=== PATIENT | female | born 1985 | race Caucasian/White ===

== ENCOUNTER 2024-03-06 14:42 | Emergency (ER) | payer BC, SELFPAY ==
[2024-03-06 14:50] VITALS: BP 112/82; BMI 23.3
[2024-03-06 15:39] LABS: % Basophils 0.4 % (0-2); % Eosinophils 3.2 % (0-6); % Immature Granulocytes 0.4 % (0-0.5); % Lymphocytes 17.9 % (20.5-51.1); % Monocytes 6.3 % (1.7-9.3); % Neutrophils 71.8 % (42.2-75.2); Absolute Eosinophils 0.3 10^3/uL (0-0.7); Absolute Lymphocytes 1.9 10^3/uL (1.2-3.4); Absolute Monocytes 0.7 10^3/uL (0.1-0.6); Absolute Neutrophils 7.5 10^3/uL (1.4-6.5); Hematocrit 40.6 % (37.0-47.0); Hemoglobin 13.8 g/dL (12.0-16.0); Mean Corpuscular Hgb 29.1 pg (27.0-31.0); Mean Corpuscular Volume 85.7 fL (81.0-99.0); Mean Platelet Volume 9.1 fL (7.4-10.4); Nucleated Red Blood Cells % 0 %; Platelet Count 266 10^3/uL (130-400); Red Blood Cell Count 4.74 10^6/uL (4.20-5.40); Red Cell Dist. Width 12.7 % (11.5-14.5); White Blood Cell Count 10.5 10^3/uL (4.8-10.8)
--- NOTE | 2024-03-06 15:41 | ED.GENMED ---
History of Present Illness
General
Chief Complaint: Abdominal Pain
Source: patient
Exam Limitations: none
Time Seen by Provider: 03/06/24 15:07
Nursing documentation reviewed up to this point in time: agreed with
Travel History
Have you had any contact with someone who has COVID-19?: No
Do you have any symptoms of coronavirus? Fever > 100 degrees, chills, cough, shortness of breath, sore throat, loss of taste or smell, muscle aches, or headache?: No
History of Present Illness
History of Present Illness:
Patient to eD with complaint of upper abdominal pain. Pain started a few days ago. radiates arouond to both sides of back. Denies fever but feels chilles. +nausea. no vomiting or diarrhea. Brought to ED by family for eval.
Past History
Past History
ED Past Medical History: Other (migraines, Guilliame Bare )
ED Past Surgical History: Appendectomy and Other (Sinus surgery)
Social History
Tobacco: Non-smoker
Alcohol: None
Drug: None
Review of Systems
Review of Systems
Allergies reviewed?: Yes
All Other Systems: ROS reviewed and negative except as documented in HPI and ROS
Constitutional: Reports chills
EENT: Reports no symptoms
Respiratory: Reports no symptoms
Cardiac: Reports no symptoms
ABD/GI: Reports abdominal pain (Upper abdomen radiating around to both sides of back.)
: Reports no symptoms
Musculoskeletal: Reports no symptoms
Skin: Reports no symptoms
Neurological: Reports no symptoms
Psychiatric: Reports no symptoms
Phy Exam
General Physical Exam
General Presentation: well appearing and no apparent distress
General age: appears stated age
General Skin: warm and dry
General Habitus: normal
Cardiovascular Exam
Cardiovascular Exam: regular rate/rhythm
Gastrointestinal Exam
Gastrointestinal Exam: normal bowel sounds, soft, no organomegaly, no pulsatile mass, non distended and no cva tenderness
Palpation: left upper quadrant: Moderate tenderness, left lower quadrant: No tenderness, right upper quadrant: Moderate tenderness and right lower quadrant: No tenderness
Musculoskeletal Exam
Musculoskeletal Exam: full ROM and neuro vasc intact
Skin Exam
Skin Exam: normal color, warm/dry, no rash and no petechia
Psychiatric Exam
Psychiatric Exam: normal mood/affect
Course
Orders/Labs/Results
Orders:
Orders
03/06/24 15:15
US Abdomen Complete/Upper Urgent
Comment:
Reason For Exam: pain
03/06/24 15:16
0.9% Sodium Chloride 1000 ml [Nss] 1,000 ml IV BOLUS
HYDROmorphone [Dilaudid] 0.5 mg IV NOW STA
Ondansetron Injectable [Zofran] 4 mg IV NOW STA
Test Result ONCE
03/06/24 15:34
Complete Blood Count/With Diff Urgent
Comprehensive Metabolic Panel Urgent
HCG, Serum Qualitative Screen Urgent
Lipase Urgent
03/06/24 15:37
Urinalysis Reflex To Culture Urgent
Date Specimen was Collected: 03/06/24
Time Specimen was Collected: 15:35
Abnormal Lab Results
03/06/24
15:34
Absolute Neuts (auto) 7.5 H 10^3/uL
(1.4-6.5)
Absolute Monos (auto) 0.7 H 10^3/uL
(0.1-0.6)
Lymphocytes % 17.9 L %
(20.5-51.1)
Sodium 134 L mmol/L
(135-145)
03/06/24 15:34
03/06/24 15:34
Vital Signs
Initial and Last Documented VS:
Initial Vital Signs
Temp Pulse Resp BP Pulse Ox
97 F 97 16 112/82 99
03/06/24 14:50 03/06/24 14:50 03/06/24 14:50 03/06/24 14:50 03/06/24 14:50
Last Documented Vital Signs
Temp Pulse Resp BP Pulse Ox
97 F 97 16 112/82 99
03/06/24 14:50 03/06/24 14:50 03/06/24 14:50 03/06/24 14:50 03/06/24 14:50
*Critical Care Note
Total Time (30-74mins, 75-104mins- exclusive of procedures): Not Applicable
Update Note
Update Note:
Labs, US reviewed with patient. No findings to explain her symptoms. Comfortable after IVF, meds. Will hold off on CT for now. SHe will be discharged home and will follow up closely with PCP after disharge. Given instructions on s/s to return
to ED and she is agreeable to plan.
ED Attending Note
-
Portions of this chart may have been created with voice recognition software.� Occasional wrong word or��sound alike� substitutions may have occurred due to the inherent limitations of voice recognition software.
Discharge Plan
Departure
Patient Disposition: Home (Routine Discharge)
Date of Disposition: 03/06/24
Time of Disposition: 16:25
Patient with high blood pressure during this ER visit?: No
Condition: Good
Covid-19: Not Applicable
Discharge Problem:
Abdominal pain
Instructions: Clear Liquid Diet, Abdominal Pain
Referrals:
Tevin Lozano MD [Family Provider] - Tomorrow
Activity Restrictions/Additional Instructions:
Return to the emergency department immediately for any changes in/wosening of your symptosm
Interventions
Interventions:
*Risk Screen - Suicide Last Done: 03/06/24 14:50
*General Assessment Last Done: 03/06/24 15:16
*Neglect/Abuse Screening Last Done: 03/06/24 14:50
ED- Fall Risk Assessment Last Done: 03/06/24 15:19
*ED COVID-19 Vaccine History Last Done: 03/06/24 14:50
XN-Dcwlzb-Yctkitkwcj Assessment Last Done: 03/06/24 15:19
Discharge Date and Time
Print Language: QATARI
[2024-03-06 15:44] LABS: Urine Albumin Negative (Neg - Trace); Urine Bilirubin Negative (Negative); Urine Character Clear (Clear); Urine Color Yellow; Urine Glucose Negative (Negative); Urine Ketone Negative (Negative); Urine Leukocyte Negative (Negative); Urine Nitrite Negative (Negative); Urine Occult Blood Negative (Negative); Urine Urobilinogen Negative (Neg - 1+)
[2024-03-06 15:59] LABS: HCG, Serum Qualitative Screen Negative
[2024-03-06 16:01] LABS: ALT (SGPT) 12 U/L (0-35); AST (SGOT) 21 U/L (14-36); Albumin 4.6 g/dl (3.5-5.0); Alkaline Phosphatase 69 U/L (38-126); Blood Urea Nitrogen 10 mg/dl (7-17); Calcium 9.9 mg/dl (8.4-10.2); Carbon Dioxide 30 mmol/L (22-30); Chloride 102 mmol/L (98-107); Estimated Creatinine Clearance 112 ml/min; Glucose 99 mg/dl (70-99); Lipase 111 U/L (23-300); Potassium 3.8 mmol/L (3.5-5.1); Sodium 134 mmol/L (135-145); Total Bilirubin 0.4 mg/dl (0.2-1.3); Total Protein 7.4 g/dl (6.3-8.2); eGFR > 60.00
[2024-03-06 16:55] VITALS: BP 110/78
== END 2024-03-06 17:01 | disposition home or self-care (01) ==
LOC: EMR 14:42
PROVIDERS: Nurse Practitioner; EMERGENCY PHYSICIAN Emergency Medicine; FAMILY PHYSICIAN Internal Medicine
DX: R10.10 Upper abdominal pain, unspecified (principal); R68.83 Chills (without fever); R11.0 Nausea
CPT/HCPCS: 99284; 76700; 80053; 81003; 83690; 84703; 85025

== ENCOUNTER 2025-01-15 11:15 | Emergency (ER) | payer BC, SELFPAY ==
[2025-01-15] VITALS (12 sets, daily range): BP systolic 99–136; BP diastolic 69–106; PULSE 98–103; BMI 23.3
[2025-01-15 12:05] LABS: % Basophils 0.4 % (0-2); % Eosinophils 3.4 % (0-6); % Immature Granulocytes 0.3 % (0-0.5); % Lymphocytes 27.2 % (20.5-51.1); % Monocytes 9.6 % (1.7-9.3); % Neutrophils 59.1 % (42.2-75.2); Absolute Eosinophils 0.2 10^3/uL (0-0.7); Absolute Lymphocytes 1.9 10^3/uL (1.2-3.4); Absolute Monocytes 0.7 10^3/uL (0.1-0.6); Hematocrit 31.9 % (37.0-47.0); Hemoglobin 10.1 g/dL (12.0-16.0); Mean Corp Hgb Conc. 31.7 g/dL (33.0-37.0); Mean Corpuscular Hgb 24.6 pg (27.0-31.0); Mean Corpuscular Volume 77.8 fL (81.0-99.0); Mean Platelet Volume 8.6 fL (7.4-10.4); Nucleated Red Blood Cells % 0 %; Platelet Count 334 10^3/uL (130-400); Red Cell Dist. Width 14.5 % (11.5-14.5); White Blood Cell Count 6.8 10^3/uL (4.8-10.8)
[2025-01-15 12:20] LABS: ALT (SGPT) 12 U/L (0-35); AST (SGOT) 18 U/L (14-36); Albumin 4.4 g/dl (3.5-5.0); Alkaline Phosphatase 72 U/L (38-126); Blood Urea Nitrogen 11 mg/dl (7-17); Calcium 9.7 mg/dl (8.4-10.2); Carbon Dioxide 28 mmol/L (22-30); Chloride 102 mmol/L (98-107); Glucose 97 mg/dl (70-99); Potassium 4.1 mmol/L (3.5-5.1); Sodium 138 mmol/L (135-145); Total Bilirubin 0.4 mg/dl (0.2-1.3); Total Protein 7.3 g/dl (6.3-8.2); eGFR > 60.00
[2025-01-15 12:29] LABS: Troponin I < 0.012 ng/ml
[2025-01-15 12:38] LABS: Urine Albumin Negative (Neg - Trace); Urine Bilirubin Negative (Negative); Urine Character Slightly Cloudy (Clear); Urine Color Yellow; Urine Glucose Negative (Negative); Urine Ketone Negative (Negative); Urine Leukocyte 2+ (Negative); Urine Nitrite Negative (Negative); Urine Occult Blood Negative (Negative); Urine Urobilinogen Negative (Neg - 1+)
[2025-01-15] MEDS: TORADOL 15 MG IV (12:46)
[2025-01-15] MEDS: VALIUM INJECTION 2 MG IV ×2 (12:46→14:00)
[2025-01-15] MEDS: REGLAN 10 MG IV (12:47)
[2025-01-15 13:21] LABS: Urine Squamous Cell >30 /LPF (Few)
[2025-01-15 13:23] LABS: Urine Amorphous Seen
[2025-01-15 13:24] LABS: Urine Red Blood Cell 0-2 /HPF (0-2)
--- NOTE | 2025-01-15 13:52 | ED.GENMED ---
History of Present Illness
General
Chief Complaint: Heart Rate Problem
Time Seen by Provider: 01/15/25 12:22
History of Present Illness
History of Present Illness:
39-year-old female with history of Guillain-Elkins� and hemiplegic migraines presents to the emergency department for evaluation of postural dizziness and tachycardia that is been ongoing for the past 3 to 4 days. She reports that while using a home
pulse oximeter she has noted her heart rate increases in the 1 20-1 30 range when upright. She has not been able to stand up without feeling dizzy. She does note that she had 'the flu' approximately 3 to 4 weeks ago. She also reports a persistent
migraine for the past month that is consistent with her past history of migraines. Denies any vision changes. When upright she describes a sensation as 'feeling drunk'.
Past History
Past History
ED Past Medical History: Other (migraines, Guilliame Bare )
ED Past Surgical History: Appendectomy and Other (Sinus surgery)
Social History
Tobacco: Non-smoker
Alcohol: None
Drug: None
Review of Systems
Review of Systems
Allergies reviewed?: Yes
All Other Systems: ROS reviewed and negative except as documented in HPI and ROS
Phy Exam
Physical Exam
Physical Exam:
GEN: Well appearing, NAD, WDWN
HEENT: Oral mucosa moist, no scleral icterus, no nasal congestion
Cardiac: Mildly tachycardic, regular
Lung: No respiratory distress, no tachypnea
MSK: No gross deformity or injuries
Skin: Good color, no pallor or jaundice, no rashes
Neuro: AO x3; CN II-XII grossly intact. BUE strength 5/5 in all li, sensation intact and symmetric. BLE strength 5/5 in all li, sensation intact and symmetric. Horizontal nystagmus noted when patient is upright
Psych: Calm, cooperative
Course
Orders/Labs/Results
Orders:
Orders
01/15/25 11:16
ECG [Electrocardiogram (*1)] Urgent
Reason for Study: Tachycardia
EKG- Treatment ONCE
01/15/25 11:51
Complete Blood Count/With Diff Urgent
Comprehensive Metabolic Panel Urgent
Troponin I Urgent
01/15/25 12:27
HCG, Urine Qualitative Screen Urgent
Date Specimen was Collected: 01/15/25
Time Specimen was Collected: 12:24
Comment: ADD ON
Urinalysis Reflex To Culture Urgent
Date Specimen was Collected: 01/15/25
Time Specimen was Collected: 12:24
Urine Microscopic Reflex Cult Urgent
Urine Culture Urgent
[place] Source: U
Specimen Description:
Date Specimen was Collected: 01/15/25
Time Specimen was Collected: 12:24
01/15/25 12:40
Ketorolac [Toradol] 15 mg IV NOW STA
Metoclopramide [Reglan] 10 mg IV NOW STA
diazePAM [Valium Injection] 2 mg IV NOW STA
01/15/25 13:48
CT Head W/o Iv Contrast Urgent
Comment:
Reason For Exam: intractable vertigo
Dexamethasone Sod Phosphate [Decadron] 10 mg IV NOW STA
diazePAM [Valium Injection] 2 mg IV NOW STA
01/15/25 13:56
Add On- LAB Stat
Comments:: HCG urine
Tests Added?: Urine HCG
01/15/25 14:13
Add On- LAB Urgent
Tests Added?: HCG qualitative
Abnormal Lab Results
01/15/25 01/15/25
11:51 12:27
RBC 4.10 L 10^6/uL
(4.20-5.40)
Hgb 10.1 L g/dL
(12.0-16.0)
Hct 31.9 L %
(37.0-47.0)
MCV 77.8 L fL
(81.0-99.0)
MCH 24.6 L pg
(27.0-31.0)
MCHC 31.7 L g/dL
(33.0-37.0)
Absolute Monos (auto) 0.7 H 10^3/uL
(0.1-0.6)
Monocytes % 9.6 H %
(1.7-9.3)
Leukocyte Esterase Rfl 2+ A
(Negative)
01/15/25 11:51
01/15/25 11:51
Vital Signs
Initial and Last Documented VS:
Initial Vital Signs
Temp Pulse Resp BP Pulse Ox
98.7 F 109 20 125/81 100
01/15/25 11:21 01/15/25 11:21 01/15/25 11:21 01/15/25 11:21 01/15/25 11:21
Last Documented Vital Signs
Temp Pulse Resp BP Pulse Ox
98.7 F 86 20 99/79 94
01/15/25 11:21 01/15/25 15:45 01/15/25 15:45 01/15/25 15:30 01/15/25 15:45
MDM/Problems Addressed
MDM/Problems Addressed:
Ultimately I suspect patient's vertigo symptoms are due to peripheral vertigo such as vestibular neuritis in the setting of recent flulike illness. She does not become orthostatic when upright, she does have mild tachycardia but no hypotension and
given her description as 'feeling drunk' I suspect this is a peripheral vertigo process. After initial dose of treatments did not provide significant improvement CT of the head was obtained. Patient will be observed in the ED as she metabolizes
benzodiazepines, clearly she does not tolerate these well and this would not be recommended at discharge. Will trial course of steroids, anticipate the patient can be discharged home however can be offered admission if she remains profoundly
vertiginous
*Critical Care Note
Total Time (30-74mins, 75-104mins- exclusive of procedures): Not Applicable
ED Attending Note
-
Portions of this chart may have been created with voice recognition software.� Occasional wrong word or��sound alike� substitutions may have occurred due to the inherent limitations of voice recognition software.
Discharge Plan
Departure
Patient Disposition: Home (Routine Discharge)
Patient with high blood pressure during this ER visit?: No
Discharge Problem:
Vertigo
Instructions: Vertigo ED
Prescriptions:
New
methylprednisolone [Medrol ([place])] 4 mg tablets,dose pack
See Rx Instructions .ROUTE .COMPLEX Qty: 21 0RF
Rx Instructions:
orally per package directions
Referrals:
Tevin Lozano MD [Family Provider] -
Interventions
Interventions:
*Risk Screen - Suicide Last Done: 01/15/25 11:21
*General Assessment Last Done: 01/15/25 11:21
*Neglect/Abuse Screening Last Done: 01/15/25 11:21
*ED- Fall Risk Assessment Last Done: 01/15/25 11:41
*Nursing Disposition Last Done: 01/15/25 15:45
ED- Cardiac Assessment Last Done: 01/15/25 11:41
ED- Pulmonary Assessment Last Done: 01/15/25 11:41
Discharge Date and Time
Discharge Date/Time: 01/15/25 15:45
Print Language: ROMANSH
[2025-01-15] MEDS: DECADRON 10 MG IV (14:00)
[2025-01-15 14:22] LABS: HCG, Urine Qualitative Screen Negative
== END 2025-01-15 15:45 | disposition home or self-care (01) ==
LOC: EMR 11:15
PROVIDERS: EMERGENCY PHYSICIAN Emergency Medicine; FAMILY PHYSICIAN Internal Medicine
DX: R42 Dizziness and giddiness (principal); Z90.49 Acquired absence of other specified parts of digestive tract
CPT/HCPCS: 99284; 96374; 96375; 96376; 70450; 80053; 81003; 81015; 81025; 84484; 85025; 87077; 87086; 87147; 93005